=== PATIENT | female | born 1995 | race Caucasian/White ===

== ENCOUNTER 2017-04-18 12:58 | Emergency (ER) | payer OTHER ==
[~2017-04-18 12:58] MED LIST: DURICEF500 MG PO
--- NOTE | 2017-04-18 14:28 | ED GENERAL ADULT ---
History of Present Illness General Chief Complaint: Laceration Procedure Stated Complaint: ?PROBLEMS WITH PIERCING, "NEED IT CUT OUT" Source: patient, family Exam Limitations: no limitations Vital Signs & Intake/Output Vital Signs & Intake/Output Vital Signs Date Time Temp Pulse Resp B/P B/P Pulse O2 O2 Flow FiO2 Mean Ox Delivery Rate 04/18 1442 98.6 89 20 138/95 99 04/18 1319 98.6 95 20 120/80 99 Allergies Coded Allergies: NO KNOWN ALLERGIES (05/31/14) Reconcile Medications Etonogestrel/Ethinyl Estradiol (Nuvaring Vaginal Ring) 0.12 MG -0.015 MG/24 HR VAG.RING 1 EACH VG Q30D CONTROL (Reported) use for 3 weeks, skip for 1 week Triage Note: PER PT WOULD LIKE PIERCING X 2 REMOVED FROM DIMPLES IN BACK, SKIN GREW OVER THEM NO INFECTION OR DRAINAGE. Triage Nurses Notes Reviewed? yes Onset: Abrupt Duration: day(s):, constant, continues in ED Timing: recent history Injury Environment: home No Modifying Factors: none : No Patient currently breastfeeds: No HPI: 21-year-old female comes into the emergency room for further evaluation of her piercing on her right lower back. Patient reports that is been there for about 4 years. Recently the skin overdrew over and she is wondering if I can so the piercing is showing again. Denies any pain. Denies any fever chills. Patient reports that she was wearing some restrictive close which is why this happened. Denies any other associated symptoms. (ANNAMARIA ROJAS) Past History Travel History Traveled to [place] past 21 day No Medical History Any Pertinent Medical History? see below for history Neurological: NONE EENT: NONE Cardiovascular: NONE Respiratory: NONE Gastrointestinal: GERD Hepatic: NONE Renal: NONE Musculoskeletal: NONE Psychiatric: NONE Endocrine: NONE Surgical History Surgical History: non-contributory Psychosocial History What is your primary language Chinese Tobacco Use: Never used Family History Hx Contributory? No (ANNAMARIA ROJAS) Review of Systems Review of Systems Constitutional: Reports: no symptoms. EENTM: Reports: no symptoms. Respiratory: Reports: no symptoms. Cardiovascular: Reports: no symptoms. GI: Reports: no symptoms. Genitourinary: Reports: no symptoms. Musculoskeletal: Reports: no symptoms. Skin: Reports: see HPI. Neurological/Psychological: Reports: no symptoms. Hematologic/Endocrine: Reports: no symptoms. Immunologic/Allergic: Reports: no symptoms. All Other Systems: Reviewed and Negative (ANNAMARIA ROJAS) Physical Exam Physical Exam General Appearance: well developed/nourished Head: atraumatic, normal appearance Eyes: Bilateral: normal appearance. Ears, Nose, Throat: normal ENT inspection Neck: normal inspection Respiratory: no respiratory distress Back: PIERCING RIGHT LOWER BACK, OVERGROWN WITH SKIN, NO ERYTHEMA, NO WARMTH, NO DISCHARGE, Extremities: normal inspection Neurologic/Psych: awake, alert, oriented x 3 Skin: intact Core Measures ACS in differential dx? No CVA/TIA Diagnosis: No Severe Sepsis Present: No Septic Shock Present: No (ANNAMARIA ROJAS) Progress Differential Diagnoses I considered the following diagnoses in my evaluation of the patient: Cellulitis, abscess, soft tissue foreign body, Plan of Care: 04/18/2017 3:58:43 PM Some local lidocaine used. Small incision made. Piercing revealed to the skin. Patient does not want me to pull the piercing out. There is no signs of infection at this time. Overlapping skin removed. Initial ED EKG: none (ANNAMARIA ROJAS) Departure Departure Disposition: HOME OR SELF CARE Condition: Stable Clinical Impression Primary Impression: Body piercing Referrals: ENRICO THOMPSON,JAEL Allan (PCP/Family) Additional Instructions: Return if any redness swelling discharge fever chills. Return if any other concerns worsening symptoms. Please go over all results of today's visit with your primary care doctor. Contact your primary care doctor to let them know you were here in the emergency room. There may be nonspecific findings which may not be related to your visit today here in the emergency room but may require further evaluation and chronic monitoring by your primary care doctor. If you had a laceration today the chance of foreign body always remains. You should follow-up with your primary care doctor for recheck in 3-5 days for a wound check. If you had an x-ray done there is a chance that a fracture could have been missed on initial read and you should follow-up with your primary care doctor for repeat x-rays if symptoms persist. If your blood pressure was elevated here in the emergency room please have rechecked by her primary care doctor within the next 48 hours by your primary care doctor. If you were prescribed a narcotic here in the emergency room or any type of controlled substances you're not allowed to drive while taking this medication or operate any type of heavy machinery. Narcotics can make you feel lightheaded dizziness nausea and can cause constipation. You may need to rock picker a stool softener. Thank you for choosing [facility] emergency room. Please return to the emergency room immediately if you have any other concerns worsening of symptoms. Departure Forms: Customer Survey General Discharge Information (ANNAMARIA ROJAS) PA/OPTOMETRY TEACHER Co-Sign Statement Statement: ED Attending supervision documentation- [] I saw and evaluated the patient. I have also reviewed all the pertinent lab results and diagnostic results. I agree with the findings and the plan of care as documented in the PA's/OPTOMETRY TEACHER's documentation. [X] I have reviewed the ED Record and agree with the PA's/OPTOMETRY TEACHER's documentation. [] Additions or exceptions (if any) to the PAs/OPTOMETRY TEACHER's note and plan are summarized below: [] (KORI CURRY,GARDENIA Robin) Procedures Additional Procedures Progress: Betadine prep, 1% lied with epi, 3 mL injected, small 3 mm cut made with 11 scalpel blade, piercing revealed to the surface, left in place, (ANNAMARIA ROJAS) Critical Care Note Critical Care Note Critical Care Time: non-applicable (ANNAMARIA ROJAS)
[2017-04-18 14:42] VITALS: BP 138/95
[2017-04-18] MEDS ORDERED: NUVARING VAGIN1 EACH VG (14:44)
== END 2017-04-18 14:44 ==
LOC: ERH 12:58
DX: R23.9 Unspecified skin changes (principal)